=== PATIENT | female | born 1980 | race Caucasian/White ===

== ENCOUNTER 2018-03-29 13:33 | Emergency (ER) | payer SELFPAY ==
[~2018-03-29] VITALS: Ht 162.6 cm; Wt 92.9 kg
[~2018-03-29 13:33] MED LIST: AMOXICILLIN 50500 MG PO; BACTRIM DS 8001 TAB PO; DEPO-PROVER150 MG/M1; GLUCOPHAGE500 MG/TAB PO; LORTAB 5/500 501 TAB PO; MAGIC MOUTHWASH1 ML PO; NO HOME MEDICATIONS; NORCO 325 MG-51 TAB PO; PRENATAL1 TA6 PO
[2018-03-29 13:52] VITALS: BP 158/84; PULSE 76; TEMP 98.3
[2018-03-29] MEDS ORDERED: PREDNISONE20 MG PO (15:19)
== END 2018-03-29 15:30 | disposition home or self-care (01) ==
LOC: COL.ER 13:33
DX: L25.9 Unspecified contact dermatitis, unspecified cause (principal); Z79.891 Long term (current) use of opiate analgesic; Z79.82 Long term (current) use of aspirin

== ENCOUNTER → 2024-01-04 | Outpatient (CLI) | payer MEDICAID ==
[~2024-01-04] MED LIST changes: +ASPIRIN 81M81 MG/TA2 PO; +BENADRYL25 M2 PO; +HUMULIN N PE100 U/ML SQ; +INSULIN LI100 UNIT/2 SQ; +MOTRIN 800800 MG/TAB PO; +PERCOCET 325 MG1 TA2 PO; +PREDNISONE20 MG PO; +PRENATAL TABLET PO; +SUDAFED 12 HOU120 MG PO; +VALTREX1 GM PO; +VITAMIN D250 MCG PO
== END ==
LOC: MHCPAIN 13:23
DX: M54.50 Low back pain, unspecified (principal); M47.817 Spondylosis without myelopathy or radiculopathy, lumbosacral region; E11.9 Type 2 diabetes mellitus without complications; Z79.4 Long term (current) use of insulin; I10 Essential (primary) hypertension
CPT/HCPCS: G0463